=== PATIENT | male | born 1980 | race African-American/Black ===

== ENCOUNTER 2019-09-24 19:22 | Emergency (ER) | payer MEDICAID ==
[~2019-09-24] VITALS: Ht 172.7 cm; Wt 65.0 kg
[2019-09-24 21:49] LABS: CLARITY URINE CLEAR (CLEAR); COLOR URINE YELLOW (YELLOW); KETONES URINE NEGATIVE (NEGATIVE); LEUKOCYTE ESTERASE URINE NEGATIVE (NEGATIVE); NITRITE URINE NEGATIVE (NEGATIVE); OCCULT BLOOD URINE NEGATIVE (NEGATIVE); PH URINE 6.5 (4.5-8.0); PROTEIN URINE NEGATIVE (NEGATIVE); SPECIFIC GRAVITY URINE 1.017 (1.005-1.030); UROBILINOGEN URINE 0.2 E.U./dL (0.2-1.0)
[2019-09-24 21:58] LABS: *AMPHETAMINES SCREEN URINE NEGATIVE (NEGATIVE); *BARBITURATES SCREEN URINE NEGATIVE (NEGATIVE); *BENZODIAZEPINES SCREEN URINE NEGATIVE (NEGATIVE); *COCAINE SCREEN URINE NEGATIVE (NEGATIVE)
[2019-09-24 21:59] LABS: CANNABINOID URINE SCREEN PRESUMTIVE POSITIVE (NEGATIVE); METHADONE URINE SCREEN NEGATIVE (NEGATIVE); OPIATES URINE SCREEN NEGATIVE (NEGATIVE); PHENCYCLIDINE URINE SCREEN PRESUMTIVE POSITIVE (NEGATIVE)
[2019-09-24 22:06] LABS: BASOPHILS % 0.4 % (0.0-2.0); EOSINOPHILS % 2.5 % (0.0-5.0); HEMATOCRIT. 41.9 % (42.0-52.0); LYMPHOCYTES % 28.7 % (20.0-50.0); MEAN CORPUSCULAR HEMOGLOBIN 34.5 pg (28.0-32.0); MEAN PLATELET VOLUME 7.4 fl (7.4-10.4); MONOCYTES % 5.9 % (2.0-8.0); NEUTROPHILS % 62.5 % (40.0-76.0); PLATELET 280 x1000/uL (130-400); RED BLOOD CELL COUNT 4.06 mill/uL (4.7-6.1); RED CELL DISTRIBUTION WIDTH 13.3 % (11.6-14.6)
[2019-09-24 22:10] LABS: CHLORIDE 104 mEq/L (98-107)
[2019-09-24 22:14] LABS: ETHANOL BLOOD < 10 mg/dL
[2019-09-25] MEDS ORDERED: LORAZEPAM 2MG/ML CPJ IM STA (15:51)
[2019-09-25] MEDS ORDERED: OLANZAPINE 10 MG/VIAL IM ONE (16:00)
[2019-09-26] MEDS ORDERED: OLANZAPINE 5MG TABLET PO SCH (14:15)
[2019-09-26] MEDS ORDERED: LORAZEPAM 1MG TABLET PO ONE (14:15)
[2019-09-26 14:25] VITALS: BP 119/75
== END 2019-09-26 14:30 | disposition home or self-care (01) ==
LOC: ER 19:22
DX: F19.959 Other psychoactive substance use, unspecified with psychoactive substance-induced psychotic disorder, unspecified (principal)
CPT/HCPCS: 36415; 80053; 80305; 80320; 81003; 84484; 85025; 93005; 96372; 99284; J2060; J3490; G0480